=== PATIENT | female | born 1985 | race Caucasian/White ===

== ENCOUNTER 2022-04-28 13:18 | Emergency (ER) | payer SELFPAY ==
[~2022-04-28] VITALS: Ht 172.7 cm; Wt 59.0 kg
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
[2022-04-28 20:23] LABS: BASOPHILS % (AUTO) 0.1 % (0.0-2.0); EOSINOPHILS % (AUTO) 0.1 % (0.0-6.0); HEMATOCRIT 38 % (33-45); HEMOGLOBIN 11.8 g/dL (11.5-14.8); LYMPHOCYTES # (AUTO) 2.1 K/uL (0.8-4.8); LYMPHOCYTES % (AUTO) 19.7 % (20.0-44.0); MEAN CORPUSCULAR HGB CONC 31 g/dl (31.0-36.0); MEAN CORPUSCULAR VOLUME 63 fL (82-100); MONOCYTES # (AUTO) 0.5 K/uL (0.1-1.30); MONOCYTES % (AUTO) 5.1 % (2.0-12.0); PLATELET COUNT (AUTO) 286 K/uL (150-450); RED BLOOD CELL COUNT(AUTO) 5.98 MIL/uL (4.0-5.2); WHITE BLOOD COUNT (AUTO) 10.7 K/uL (4.3-11.0)
[2022-04-28 20:42] LABS: CALCIUM, SERUM 9.5 mg/dL (8.5-10.1); CARBON DIOXIDE 24 mmol/L (21-32); CHLORIDE 107 mmol/L (98-107); CREATININE 0.8 mg/dL (0.6-1.3); GLUCOSE 75 mg/dL (74-106); POTASSIUM 3.6 mmol/L (3.5-5.1); SODIUM SERUM 140 mmol/L (136-145); UREA NITROGEN, BLOOD 16 mg/dL (7-18)
[2022-04-28 20:50] LABS: ALANINE AMINOTRANSFERASE 9 U/L (12-78); ALBUMIN 4.3 g/dL (3.4-5.0); ALCOHOL, BLOOD < 3 mg/dL (0-0); ALKALINE PHOSPHATASE 55 U/L (46-116); ASPARTATE AMINOTRANSFERASE 8 U/L (15-37); BILIRUBIN,DIRECT 0.1 mg/dL (0.0-0.2); BILIRUBIN,TOTAL 0.4 mg/dL (0.2-1.0); TOTAL PROTEIN, SERUM 7.8 g/dL (6.4-8.2)
[2022-04-28 20:51] LABS: ACETAMINOPHEN < 0 ug/ml (10-30)
[2022-04-28] MEDS ORDERED: OLANZAPINE 10 MG VIAL IM ONE ×2 (21:42→22:00)
--- NOTE | 2022-04-28 22:14 | NUR ---
COVID SWAB COLLECTED AND SENT TO LAB. OFFERED PT URINE CUP; NOT ABLE TO URINATE AT THIS TIME. WILL F/U
--- NOTE | 2022-04-28 22:48 | NUR ---
URINE COLLECTED AND SENT TO LAB
[2022-04-28 23:25] LABS: BILIRUBIN,URINE NEGATIVE (NEGATIVE); COLOR,URINE YELLOW (YELLOW); LEUKOCYTE ESTERASE ,URINE NEGATIVE (NEGATIVE); NITRITE, URINE NEGATIVE (NEGATIVE); PH,URINE 6.5 (5.0-8.0); PROTEIN,URINE NEGATIVE (NEGATIVE); UGLUCOSE NEGATIVE (NEGATIVE); UROBILINOGEN,URINE 0.2 EU/dL (0.2)
--- NOTE | 2022-04-29 03:07 | NUR ---
PT SLEEPING AT THIS TIME; ALL NEEDS MET. PT IN NO ACUTE DISTRESS AT THIS TIME SAFETY MEASURES CONTINUED
--- NOTE | 2022-04-29 07:59 | NUR ---
patient still asleep and arousable. Not in distress at this time. Will continue to monitor accordingly.
[2022-04-29 10:08] VITALS: BP 118/71
--- NOTE | 2022-04-29 10:10 | NUR ---
Patient given written and verbal discharge instructions. Patient verbalizes understanding of instructions. Patient is ambulatory with steady gait. Refuses offer of retirement placement. Patient given list of available shelters in surrounding area.
== END 2022-04-29 10:10 | disposition home or self-care (01) ==
LOC: ER 13:20
DX: F15.129 Other stimulant abuse with intoxication, unspecified (principal); F19.10 Other psychoactive substance abuse, uncomplicated
CPT/HCPCS: 99285; 96372; 85025; 80048; 80076; 84703; 81003; 36415; 87426; 80143; 80320; 80307; J3490; C9803; G0480